=== PATIENT | male | born 1980 | race Two or more races ===

== ENCOUNTER 2018-04-03 02:43 | Emergency (ER) | payer MEDICAID, OTHER, SELFPAY ==
[~2018-04-03] VITALS: Ht 180.3 cm; Wt 118.7 kg
[2018-04-03 02:45] VITALS: BP 129/80
[2018-04-03] MEDS ORDERED: OLANZAPINE 10 MG TABLET PO ONE (03:00)
[2018-04-03] MEDS ORDERED: DIVA250T4 PO (03:01)
[2018-04-03] MEDS ORDERED: GABA600T2 PO (03:01)
[2018-04-03] MEDS ORDERED: ZOLP10TA PO (03:01)
[2018-04-03] MEDS ORDERED: SERT50TA5 PO (03:01)
[2018-04-03] MEDS ORDERED: BUSP10TA PO (03:01)
[2018-04-03] MEDS ORDERED: HYDR50CA PO (03:01)
[2018-04-03] MEDS ORDERED: OLANZAPINE 10 MG TABLET ONE (03:02)
== END 2018-04-03 03:31 | disposition home or self-care (01) ==
LOC: ED 03:25
DX: F20.0 Paranoid schizophrenia (principal); Z76.0 Encounter for issue of repeat prescription; E11.9 Type 2 diabetes mellitus without complications; F17.200 Nicotine dependence, unspecified, uncomplicated
CPT/HCPCS: 99283